=== PATIENT | male | born 1950 | race Caucasian/White ===

== ENCOUNTER 2022-04-11 08:24 | Emergency (ER) | payer MEDICARE, OTHER ==
[2022-04-11] MEDS ORDERED: Sodium Chloride 0.9% 10 ML Syringe FLUSH PRN (08:29)
[2022-04-11] MEDS: Acetaminophen 325 MG Tab PO ONE (09:00)
[2022-04-11] MEDS: Acetaminophen 325 MG Tab ONE (09:01)
[2022-04-11] MEDS ORDERED: Glucagon,Human Recombinant 1 MG Vial IM PRN (09:09)
[2022-04-11] MEDS ORDERED: 50% Dextrose in Water 50 ML Syringe IVPUSH PRN (09:09)
[2022-04-11] MEDS: Morphine 2 MG/ML SYRINGE IVPUSH ONE (09:15)
[2022-04-11] MEDS: Insulin Aspart 100 Units/ML 3 ML Pen SUBCUT ONE (09:18)
[2022-04-11] MEDS: Non-Formulary Medication 1 Each SUBCUT ONE (09:19)
[2022-04-11] MEDS: Morphine 2 MG/ML SYRINGE ONE (09:20)
[2022-04-11] MEDS: cefTRIAXone 2 GM in Sodium Chloride 0.9% 100 ML IV ONE (10:23)
[2022-04-11] MEDS: cefTRIAXone 2 GM Vial ONE (10:23)
[2022-04-11] MEDS: VANCOmycin 1.5 GM/300 ML 1.5 GM in Premix Bag 1 BAG IV ONE (10:31)
[2022-04-11] MEDS: Norepinephrine 8 MG in Dextrose 5% in Water 250 ML IV SCH ×2 (10:38)
[2022-04-11] MEDS: Sodium Chloride 0.9% 1,000 ML IV SCH (10:40)
[2022-04-11] MEDS: Sodium Chloride 0.9% 500 ML IV ONE (11:31)
[2022-04-11 11:32] VITALS: BP 124/50; PULSE 83
[2022-04-11] MEDS: Piperacillin/Tazobactam 4.5 GM in Sodium Chloride 0.9% 100 ML IV SCH (11:41)
== END 2022-04-11 12:30 ==
LOC: LB.ED 08:24
DX: A41.9 Sepsis, unspecified organism (principal); R65.21 Severe sepsis with septic shock; R77.8 Other specified abnormalities of plasma proteins; E78.00 Pure hypercholesterolemia, unspecified; I10 Essential (primary) hypertension; K21.9 Gastro-esophageal reflux disease without esophagitis; E11.9 Type 2 diabetes mellitus without complications; Z79.4 Long term (current) use of insulin; Z79.899 Other long term (current) drug therapy; Z20.822 Contact with and (suspected) exposure to COVID-19
CPT/HCPCS: 36415; 71250; 74176; 80048; 81001; 82947; 83605; 84484; 85025; 87040; 87077; 87086; 87088; 87186; 93005; 96365; 96367; 96375; 99284; 99285-25; A0425; A0429; A9270-GY; J0696; J2270; J2543; J3370; J3490; J7030; J7040; J7060; U0002